=== PATIENT | female | born 1955 | race African-American/Black ===

== ENCOUNTER 2023-01-22 16:03 | Emergency (ER) | payer OTHER ==
[~2023-01-22] VITALS: Ht 157.5 cm; Wt 54.4 kg
[2023-01-22] MEDS ORDERED: IPRATROPIUM BROM 0.5 MG/2.5 ML VIAL.NEB (ATROVENT) INH ONE (16:15)
[2023-01-22] MEDS ORDERED: ALBUTEROL SULFATE 0.083% 2.5 MG/3 ML VIAL.NEB INH ONE (16:15)
[2023-01-22 16:24] VITALS: BP_SYST 129
[2023-01-22] MEDS ORDERED: IBUPROFEN 800 MG TABLET PO ONE (16:30)
[2023-01-22] MEDS ORDERED: FLUT1BLS12 ENDO (16:56)
[2023-01-22] MEDS ORDERED: SPIRIVA INH (16:56)
[2023-01-22] MEDS ORDERED: ALBMDI INH (16:56)
[2023-01-22] MEDS ORDERED: PRED20TA PO (16:59)
== END 2023-01-22 17:04 | disposition home or self-care (01) ==
LOC: SED 16:03
DX: J45.901 Unspecified asthma with (acute) exacerbation (principal); R06.02 Shortness of breath; M54.50 Low back pain, unspecified; Z79.899 Other long term (current) drug therapy
CPT/HCPCS: 94640; 99283; J7613